=== PATIENT | female | born 1950 | race Caucasian/White ===

== ENCOUNTER → 2017-05-09 16:49 | Outpatient (CLI) | payer MEDICARE | END | disposition home or self-care (01) | LOC: D.MAMMO 04-20 10:00 | DX: Z12.31 Encounter for screening mammogram for malignant neoplasm of breast (principal) ==

== ENCOUNTER → 2017-06-07 17:13 | Outpatient (CLI) | payer MEDICARE | END | disposition home or self-care (01) | LOC: D.MAMMO 13:30 | DX: R92.8 Other abnormal and inconclusive findings on diagnostic imaging of breast (principal) ==

== ENCOUNTER 2017-06-16 08:00 | Day surgery (SDC) | payer MEDICARE, MEDICAID ==
[~2017-06-16] VITALS: Ht 149.9 cm; Wt 42.6 kg
--- NOTE | ~2017-06-16 | OP ---
PATIENT NAME: JHON TYLER MEDICAL RECORD: [id number] :51 LOCATION:D.OPS ADMISSION DATE: SURGEON: JAD VALERIO MD DATE OF OPERATION: 06/16/2017 PREOPERATIVE DIAGNOSIS: Complex polyp at 35 cm. It is complex due to size and its location. It is in a very tortuous portion of the colon. POSTOPERATIVE DIAGNOSES: 1. Complex polyp at 35 cm. It is complex due to size and its location. It is in a very tortuous portion of the colon. 2. Mild left-sided diverticulosis. PROCEDURES: 1. Total colonoscopy to cecum. 2. Epinephrine injection through a sclerotherapy needle at the base of the polyp for hemostasis. 3. Snare polypectomy. SURGEON: Jad Valerio MD. FUNERAL PLANNING COUNSELOR: None. BLOOD LOSS: Minimal. ANESTHESIA: General. COMPLICATIONS: None. The risks, possible complications and alternatives to procedure were explained to the patient. She elected to proceed. The procedure was performed under general anesthesia. It was felt that we were going to need to utilize the argon plasma heel washer stringing machine operator. As it turns out, we do not need to use the argon plasma heel washer stringing machine operator. OPERATIVE COURSE: The patient was conveyed to the operating room electively on 06/16/2017. General anesthesia was induced by anesthesia staff. The patient was placed in the Alan position. A digital rectal examination was performed. A colonoscope was inserted through the anus. It was easily advanced to the cecum. The prep was adequate. Upon withdrawal, I irrigated and aspirated extensively. I dragged the folds. The pullback was greater than 20-minute pullback. I identified a pedunculated polyp with a very wide base. I advanced a sclerotherapy needle. A 3 cc of epinephrine was used to inject submucosally at the base of the polyp for hemostasis. I then removed the sclerotherapy needle. I advanced an endoscopic snare. We were able to snare around the base of the polyp. We then used the coagulation setting and then the cut setting to perform the snare polypectomy. The snare was removed. An endoscopic retrieval bag was advanced. I placed it around the polyp and then withdrew the polyp in its entirety out through the anus. I then re-endoscoped the patient to 50 cm and upon withdrawal, I saw the polyp at 35 cm. The retroflexed view was obtained in the rectum. I then unretroflexed the scope and removed it under direct vision. I will see the patient in my office in 2-3 weeks. It is very likely I will be able to turn her endoscopic care back over to her blueprint duplicator. OPERATIVE REPORT [id number] JHON TYLER TRANSINT:[id number] Voice Confirmation ID: [id number] DOCUMENT ID: [id number] JAD VALERIO MD CC: WILLIAM ESPARZA MD, GRISELDA GOMEZ MD and ESTHER BENAVIDEZ [id number] DICTATION DATE: 06/16/17 135 DIALS SUPERVISOR: [id number] [facility] [place] 06/16/17 [id number] [place] [address]
[~2017-06-16 08:00] MED LIST: ALENDRONATE SOD70 MG PO; ANORO ELLIPTA1 EACH INH; PROAIR HFA8.5 GM INH; ZOLOFT50 MG PO
[2017-06-16 10:23] VITALS: BP 138/80; Ht 149.9 cm; Wt 42.6 kg
[2017-06-16 10:50] LABS: HEMATOCRIT 51.5 % (36.0-48.0); HEMOGLOBIN 17.1 g/dL (12-16); MCH 30.6 pg (26.0-34.0); MCHC 33.2 g/dL (31.0-37.0); MCV 92.1 fL (80.0-100.0); MEAN PLATELET VOLUME 9.2 fL (7.4-10.4); RBC 5.59 10x6/uL (4.00-5.40); RDW 13.4 % (11.5-14.5)
--- NOTE | 2017-06-16 13:10 | NUR ---
PT PROCEEDURE ON PT CART LLAT. POSTITION GROUNDING PADS ON RAJESH THIGHS L/N [id number], EXP 04/27/2019 L/N [id number] EXP04/27/2019
--- NOTE | 2017-06-16 13:49 | NUR ---
RECEIVED PT FROM OR WRAPPED IN BLANKETS ARROUSES TO VERBAL STIMULI.
--- NOTE | 2017-06-16 15:26 | NUR ---
1435 TOLERATING LIQUIDS PASSED AIR.
--- NOTE | 2017-06-16 15:29 | NUR ---
1515 IV DCD CATHETER INTACT. DISCHARGE INSTRUCTIONS GIVEN.
--- NOTE | 2017-06-16 15:29 | NUR ---
1520 TO HOME VIA W/C WITH FRIEND.
== END 2017-06-16 15:20 | disposition home or self-care (01) ==
LOC: D.OPS 08:00 → D.PAN 09:00 → D.OPS 09:00 → D.PAN 09:10 → D.OPS 09:15 → D.PAN 09:15 → D.OPS 10:00 → D.PAN 10:00 → D.OPS 11:15
PROVIDERS: Anesthesiology
DX: K63.5 Polyp of colon (principal); F17.200 Nicotine dependence, unspecified, uncomplicated; J44.9 Chronic obstructive pulmonary disease, unspecified; Z01.812 Encounter for preprocedural laboratory examination

== ENCOUNTER → 2017-07-14 19:04 | Outpatient (CLI) | payer MEDICARE, MEDICAID ==
[2017-06-16 10:23] VITALS: BMI 19.0
== END | disposition home or self-care (01) ==
LOC: D.LABREF 19:04
DX: B96.89 Other specified bacterial agents as the cause of diseases classified elsewhere (principal)